=== PATIENT | male | born 1950 | race Caucasian/White ===

== ENCOUNTER 2016-10-15 23:03 | Outpatient (CLI) | payer MEDICARE, OTHER | END 2016-10-15 23:04 | disposition critical access hospital (66) | LOC: EMS 23:03 | PROVIDERS: ATTEND Surgery | DX: S06.9X9A Unspecified intracranial injury with loss of consciousness of unspecified duration, initial encounter (principal); W10.9XXA Fall (on) (from) unspecified stairs and steps, initial encounter; Y92.009 Unspecified place in unspecified non-institutional (private) residence as the place of occurrence of the external cause | CPT/HCPCS: A0425; A0433 ==

== ENCOUNTER 2016-10-15 23:22 | Emergency (ER) | payer MEDICARE, OTHER ==
[2016-10-15] MEDS ORDERED: MANNITOL 20% 500 ML IV ONE (23:56)
[2016-10-16] MEDS ORDERED: SODIUM CHLORIDE 0.9% 1,000 ML IV ONE ×3 (00:03→00:13)
--- NOTE | 2016-10-16 00:19 | XRAY Preliminary Report ---
Exam: XR Chest 1 View IMPRESSION: The endotracheal tube tip is 1.5-2 cm above the edith. [facility] SITE ID: [id number]
[2016-10-16 00:20] LABS: BASOPHILS % (AUTO) 0.1 %; EOSINOPHILS # (AUTO) 0.1 10^3/uL (0.0-0.7); EOSINOPHILS % (AUTO) 1.2 %; HCT - HEMATOCRIT 42.2 % (42.0-52.0); HGB - HEMOGLOBIN 14.3 g/dL (14.0-18.0); LYMPHOCYTES # (AUTO) 3.4 10^3/uL (1.5-3.5); LYMPHOCYTES % (AUTO) 33.8 %; MEAN CORPUSCULAR HEMOGLOBIN 31.6 pg (27.0-31.0); MEAN CORPUSCULAR HGB CONC 33.9 g/dL (32.0-36.0); MEAN CORPUSCULAR VOLUME 93.1 fL (80.0-94.0); MEAN PLATELET VOLUME 7.7 fL (7.4-11.4); MONOCYTES # (AUTO) 0.6 10^3/uL (0.0-1.0); MONOCYTES % (AUTO) 5.7 %; NEUTROPHILS # (AUTO) 5.9 10^3/uL (1.5-6.6); NEUTROPHILS % (AUTO) 59.2 %; NUCLEATED RED BLOOD CELLS AUTO 0.1 /100WBC; RED BLOOD COUNT 4.53 10^6/uL (4.70-6.10); RED CELL DISTRIBUTION WIDTH 13.4 % (12.0-15.0)
--- NOTE | 2016-10-16 00:22 | XRAY Report ---
EXAM: CHEST RADIOGRAPHY EXAM DATE: 10/15/2016 11:35 PM. CLINICAL HISTORY: Tube placement. COMPARISON: None. TECHNIQUE: 1 supine view. FINDINGS: Lungs/Pleura: Diffuse bilateral reticular opacities. No gross pleural effusion or pneumothorax is see n on this single supine view. Mediastinum: Within exam limitations, cardiomediastinal contour is normal. Other: The endotracheal tube tip is 1.5-2 cm above the edith. IMPRESSION: The endotracheal tube tip is 1.5-2 cm above the edith. [facility] Referring Provider Line: [phone] SITE ID: [id number]
--- NOTE | 2016-10-16 00:23 | CT Preliminary Report ---
Exam: CT Head W/O Impression: Extensive posttraumatic changes as outlined above. Right subdural hematoma measures up to 8 mm in thickness. There is midline shift to the left by 3 mm. Lesser amounts of subdural blood over the tentorium. Extensive subarachnoid hemorrhage. Suspect an element of diffuse cerebral edema. Midline occipital and basilar skull fractures. Intracranial pneumatosis. [facility] The above critical findings were discussed with Hubert by Dr. Cosme Crenshaw at 00:08 hrs on 7. SITE ID: [id number]
--- NOTE | 2016-10-16 00:24 | ED Physician Documentation ---
PD HPI Fall - Stated complaint Stated Complaint: TRAUMA - Chief complaint Chief Complaint: Trauma Hd/Nk - History obtained from History obtained from: Family, EMS - History of Present Illness Fall distance: Standing position (his heard a loud thud from ?cellar stairway and immedietely went there to find patient at bottom of stairs, unresponsive, with bleeding and swelling of face. She called EMS and they found him unresponsive with minimal respiratory effort. Heart rate and BP were present. No movements.) Where injury occurred: Home Timing - onset: Today (just [employer]PER[employer]) Injury(ies) location: Head, Face Associated symptoms: LOC Contributing factors: No: Anticoagulated, Intoxicated Review of Systems Unable to obtain: Unresponsive, Intubated PD PAST MEDICAL HISTORY - Past Medical History Past Medical History: No Cardiovascular: None Respiratory: Sleep apnea Neuro: None Endocrine/Autoimmune: HyPOthyroidism GI: None : None HEENT: None Psych: Depression Musculoskeletal: Osteoarthritis Derm: None - Past Surgical History Past Surgical History: No HEENT: Tonsil/Adenoidectomy - Present Medications Home Medications: Ambulatory Orders Medication Instructions Recorded Confirmed Aspirin [Renny Chewable] 81 mg PO DAILY 08/15/15 08/15/15 Cetirizine HCl [Zyrtec] 10 mg PO DAILY 08/15/15 08/16/15 Citalopram [CeleXA] 20 mg PO DAILY 08/15/15 08/15/15 Levothyroxine Sodium 50 mcg PO DAILY 08/15/15 08/16/15 - Allergies Allergies/Adverse Reactions: Allergies Allergy/AdvReac Type Severity Reaction Status Date / Time Penicillins Allergy Unknown Verified 08/15/15 15:32 - Social History Does the pt smoke?: No Smoking Status: Never smoker Does the pt drink ETOH?: No Does the pt have substance abuse?: No - Immunizations Immunizations are current?: Yes - POLST Patient has POLST: No PD ED PE NORMAL - Vitals Vital signs reviewed: Yes - General General: Other (unresponsive with only occasional spontaneous respiratory efforts. ETT in place. Bleeding from nares and apparently upper teeth area. Swelling of face and periorbital areas with protruding eyes. Midpoint and unresponsive pupils. ) - Neck Neck: No JVD - Cardiac Cardiac: RRR, No murmur - Respiratory Respiratory: Clear bilaterally (bagged respirations are symmetric. ) - Abdomen Abdomen: Non distended, No organomegaly. No: Normal bowel sounds (absent) - Back Back: Other (no noted deformity of back; he is on backboard and collar. Pelvis without obvious instability. ) - Derm Derm: Warm and dry - Extremities Extremities: No edema, Other (no noted deformities of legs.) Results - Vitals Vitals: Vital Signs - 24 hr 10/15/16 10/15/16 10/15/16 23:25 23:27 23:28 Temperature 36.1 C L Heart Rate 112 H 81 109 H Respiratory 21 29 H Rate Blood Pressure 147/115 H 147/115 H O2 Saturation 92 92 10/15/16 10/15/16 10/15/16 23:30 23:45 23:55 Temperature Heart Rate 113 H 79 84 Respiratory 21 Rate Blood Pressure 147/105 H 78/67 L 77/29 L O2 Saturation 93 92 92 10/16/16 10/16/16 10/16/16 00:00 00:03 00:10 Temperature Heart Rate 87 87 75 Respiratory 23 17 25 H Rate Blood Pressure 72/48 L 72/48 L 72/48 L O2 Saturation 92 95 95 10/16/16 10/16/16 00:32 00:47 Temperature Heart Rate 71 Respiratory 24 30 H Rate Blood Pressure 63/37 L 68/40 L O2 Saturation 96 98 Oxygen O2 Source Mechanical ventilator - Labs Labs: Laboratory Tests 10/15/16 10/15/16 10/16/16 23:35 23:35 00:20 WBC 10.0 RBC 4.53 L Hgb 14.3 Hct 42.2 MCV 93.1 MCH 31.6 H MCHC 33.9 RDW 13.4 Plt Count 146 MPV 7.7 Neut # 5.9 Lymph # 3.4 [place] # 0.6 Eos # 0.1 Baso # 0.0 Absolute Nucleated RBC 0.01 Nucleated RBCs 0.1 Bld Gas Analysis Time 0022 Sample Site RIGHT RADIAL ABG pH 7.31 L ABG pCO2 44 ABG pO2 138 H ABG HCO3 22.1 ABG Total CO2 23.0 ABG O2 Saturation 99 H ABG Base Excess -4.0 L Erasmo Test POSITIVE Respiration Rate 26 Vent Mode SIMV FiO2 100.00 Tidal Volume 500 PEEP 5 Pressure Support Vent 10 Sodium 139 Potassium 3.0 L Chloride 104 Carbon Dioxide 23 Anion Gap 12.0 BUN 22 H Creatinine 1.0 Estimated GFR (MDRD) 74 L Glucose 164 H Calcium 8.3 L Total Bilirubin 0.5 AST 59 H ALT 30 Alkaline Phosphatase 47 Total Protein 6.4 L Albumin 3.8 Globulin 2.6 Albumin/Globulin Ratio 1.5 Lipase 22 - Rads (name of study) head CT Radiology: Prelim report reviewed (large subarachnoid bleeding, right subdural as well. Skul fractures. ) cervical CT Radiology: Prelim report reviewed (no spine fractures noted) CXR Radiology: Prelim report reviewed, EMP read contemporaneously (No acute chest injury. ETT 1 1/2 cm above the edith) pelvis Radiology: Prelim report reviewed, EMP read contemporaneously (no noted fractures) PD MEDICAL DECISION MAKING - ED course Complexity details: considered differential (Seems significant head injury with facial swelling, unresponsive. Bedside FAST without free fluid. Initially with good BP but did drop the BP to 80s systolic. I can't account for it per se: CXR does not look injury. Abd soft and pelvis feels stable. [facility] was enroute and we did get head/neck CT showing severe head injury. Some bleeding from nares but not enough to really account for hypotension. Likely brain stem effect from [facility]. ), d/w family (), d/w technical sales consultant (Trauma Doc at [facility] , who accepts transfer after getting pelvis xray. Trying to stabilize BP with IV fluids. It does not appear to be volume/blood loss caused. Transfer to [facility] in critical condition. ) - Critical Care Time Includes: Direct patient care, Reassess patient, Document care, Coordinate care Data interpretation: Labs, Pulse ox, CXR, See progress note Procedures included in critical care time: Ventilator mgmt Departure - Departure Disposition: 02 Transfer Acute Care Hosp Clinical Impression: Intracranial bleeding Major injury of head Qualifiers: Encounter type: initial encounter Qualified Code(s): S09.90XA - Unspecified injury of head, initial encounter Skull fracture Qualifiers: Encounter type: initial encounter Skull bone/location: vault of skull Fracture type: closed Qualified Code(s): S02.0XXA - Fracture of vault of skull, initial encounter for closed fracture Condition: Stable Discharge Date/Time: 10/16/16 00:45
--- NOTE | 2016-10-16 00:26 | CT Report ---
EXAM: CT HEAD EXAM DATE: 10/15/2016 11:52 PM. CLINICAL HISTORY: Head injury; unresponsive. COMPARISON: None. TECHNIQUE: Multiaxial CT images were obtained from the foramen magnum to the vertex. IV contrast: Non e. Reformats: Coronal. In accordance with CT protocol optimization, one or more of the following dose reduction techniques w ere utilized for this exam: automated exposure control, adjustment of mA and/or KV based on patient s ize, or use of iterative reconstructive technique. FINDINGS: Right frontal and parietal convexity subdural hematoma measures up to 8 mm in thickness. Smaller amou nts of subdural hemorrhage are seen over the tentorium, measuring up to 5.5 mm in thickness. Extensive subarachnoid blood products are seen over both convexities, within the interhemispheric fis sure, basal cisterns, sylvian fissures and within the posterior fossa. Suspect an element of diffuse cerebral edema, johnson-white differentiation is no clearly visible, suspe ct an element of diffuse sulcal effacement. This is difficult due to the extent of subarachnoid blood products. There is a small amount of intracranial gas seen over the right frontal pole. This is associated with nondisplaced fractures through the cribriform plate and orbit roofs. There is an extraconal hematoma seen within the right superomedial orbit measuring up to 7 mm in thickness. Mildly offset midline occipital bone fracture extends upward to the lambdoid suture. Nondisplaced fra ctures are seen involving the right occipital condyle, clivus, extending into the left sphenoid sinus . Suspect a nondisplaced fracture within the left mastoid. There is midline shift to the left by 3 mm. There is no evidence of transtentorial herniation. Impression: Extensive posttraumatic changes as outlined above. Right subdural hematoma measures up to 8 mm in thickness. There is midline shift to the left by 3 mm. Lesser amounts of subdural blood over the tentorium. Extensive subarachnoid hemorrhage. Suspect an element of diffuse cerebral edema. Midline occipital and basilar skull fractures. Intracranial pneumatosis. [facility] The above critical findings were discussed with Hubert by Dr. Cosme Crenshaw at 00:08 hrs on 7. Referring Provider Line: [phone] SITE ID: [id number]
[2016-10-16 00:27] LABS: ALBUMIN/GLOBULIN RATIO 1.5 (1.0-2.2); BILIRUBIN,TOTAL 0.5 mg/dL (0.2-1.0); CALCIUM 8.3 mg/dL (8.5-10.3); TOTAL PROTEIN 6.4 g/dL (6.7-8.2)
--- NOTE | 2016-10-16 00:28 | CT Preliminary Report ---
Exam: CT Cervical Spine W/O IMPRESSION: Nondisplaced fracture right occipital condyle and midline occipital bone. Please see CT h ead report. No fracture is identified in the cervical spine. Patchy upper lung air space disease bila terally. This is not entirely imaged. [facility] SITE ID: [id number]
--- NOTE | 2016-10-16 00:31 | CT Report ---
EXAM: CT CERVICAL SPINE WITHOUT CONTRAST DATE: 10/15/2016 11:47 PM HISTORY: Fall with head injury. Unresponsive. COMPARISONS: None. TECHNIQUE: Thin-section axial images were acquired of the cervical spine without contrast. Post-proce ssing: Coronal and sagittal reformats. Other: None. In accordance with CT protocol optimization, one or more of the following dose reduction techniques w ere utilized for this exam: automated exposure control, adjustment of mA and/or KV based on patient s ize, or use of iterative reconstructive technique. FINDINGS: Alignment: Slight anterolisthesis at C4-C5 Bones: No fracture or bone lesion. Interspace Levels/Facets: C1-C2: Nondisplaced fracture right occipital condyle and midline occipital bone. C2-C3: Unremarkable. C3-C4: Unremarkable. C4-C5: Moderate left-sided facet osteoarthritis C5-C6: Moderate disk space narrowing. Endplate osteophyte mildly narrows the central canal. Mild bila teral foraminal stenosis. C6-C7: Moderate disk space narrowing. Endplate osteophyte mildly narrows the central canal. Bony fora yanci appear patent. C7-T1: Unremarkable. Musculature: Normal. No fatty atrophy. Other: Patient is intubated. Patchy bilateral upper lung disease, not entirely imaged. IMPRESSION: Nondisplaced fracture right occipital condyle and midline occipital bone. Please see CT h ead report. No fracture is identified in the cervical spine. Patchy upper lung air space disease bila terally. This is not entirely imaged. [facility] Referring Provider Line: [phone] SITE ID: [id number]
--- NOTE | 2016-10-16 00:41 | XRAY Preliminary Report ---
Exam: XR Pelvis 1 View IMPRESSION: No fracture detected given the limitations of the radiograph. If mechanism remains concer glenna, recommend CT evaluation. [facility] SITE ID: [id number]
--- NOTE | 2016-10-16 00:45 | XRAY Report ---
EXAM: PELVIS RADIOGRAPHY EXAM DATE: 10/16/2016 12:12 AM. CLINICAL HISTORY: Fall. COMPARISON: None. TECHNIQUE: 1 view. FINDINGS: Bones: Normal. No fracture or bone lesion. Joints: The visualized hip, pubis symphysis, and sacroiliac joints are preserved. No subluxation. Soft Tissues: Normal. No soft tissue swelling. Study limited by trauma board and body habitus. IMPRESSION: No fracture detected given the limitations of the radiograph. If mechanism remains concerning, recomm end CT evaluation. [facility] Referring Provider Line: [phone] SITE ID: [id number]
[2016-10-16 00:46] LABS: ABG PCO2 44 mmHg (34-45); ABG PH 7.31 (7.35-7.45); ABG PO2 138 mmHg (80-100)
[2016-10-16 00:47] LABS: ABG HCO3 22.1 mmol/L (22.0-26.0); ABG MODE OF VENTILATION SIMV; ABG OXYGEN SATURATION 99 % (94-98); ABG PEAK END EXPIRATORY PRESSU 5 cmH2O; ABG PRESSURE SUPPORT VENT 10 cmH2O; ABG RESPIRATORY RATE 26 b/min; ABG SITE OF DRAW RIGHT RADIAL; ALLEN TEST POSITIVE
[2016-10-16 00:48] VITALS: BP 68/40
== END 2016-10-16 00:45 | disposition short-term general hospital (02) ==
LOC: EDUNIT# → EDBD → ED 23:22 → SUPCPDRO 23:22 → ED 10-16 00:45
DX: S06.309A Unspecified focal traumatic brain injury with loss of consciousness of unspecified duration, initial encounter (principal); S02.0XXA Fracture of vault of skull, initial encounter for closed fracture; W10.8XXA Fall (on) (from) other stairs and steps, initial encounter; Y92.018 Other place in single-family (private) house as the place of occurrence of the external cause; E03.9 Hypothyroidism, unspecified; G47.30 Sleep apnea, unspecified; M19.90 Unspecified osteoarthritis, unspecified site; Z79.82 Long term (current) use of aspirin
CPT/HCPCS: 36415; 36600; 43752; 51702; 70450; 71010; 72125; 72170; 80053; 82803; 83690; 85025; 99285; G0390; 99291